=== PATIENT | female | born 1990 | race Caucasian/White ===

== ENCOUNTER → 2019-05-14 | Outpatient (CLI) | payer OTHER ==
--- NOTE | 2019-05-14 08:43 | RADIOLOGY REPORT (SQ) ---
EXAM DESCRIPTION: DUPLEX ART/LUIS FLOW COMPLETE COMPLETED DATE/TIME: 05/14/2019 8:16 am REASON FOR STUDY: HTN (I10) COMPARISON: None. TECHNIQUE: Realtime and static grayscale images acquired. Selected color Doppler, velocities and spe ctral images recorded. LIMITATIONS: None. FINDINGS: RIGHT KIDNEY: RENAL ARTERY VELOCITIES: 163 cm/sec. Segmental artery velocity 63 cm/sec. RENAL VEIN: Color doppler flow present, patent. VELOCITY RATIO: 0.8. Normal waveforms. KIDNEY: Normal size. No significant pathology. LEFT KIDNEY: RENAL ARTERY VELOCITIES: 131 cm/sec. Segmental artery velocity 77 cm/sec. RENAL VEIN: Color doppler flow present, patent. VELOCITY RATIO: 0.7. Normal waveforms. KIDNEY: Normal size. No significant pathology. BLADDER: Normal. OTHER: There is a 3.1 x 3.8 cm echogenic lesion in the left lobe of the liver. IMPRESSION: 1. NO DOPPLER EVIDENCE OF HEMODYNAMICALLY SIGNIFICANT RENAL ARTERY STENOSIS. 2. INCIDENTALLY SEEN IS A 3.1 X 3.8 CM ECHOGENIC LESION IN THE LEFT LOBE OF THE LIVER. THE LIVER IS NOT COMPLETELY EVALUATED ON THE STUDY. 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 RECOMMEND CORRELATI ON WITH ANY PRIOR IMAGING STUDIES. IF THERE HAS BEEN NO PREVIOUS EVALUATION, THEN WOULD CONSIDER MRI OF THE LIVER FOR MORE COMPLETE EVALUATION. COMMENT: NORMAL RENAL ARTERY/AORTA VELOCITY RATIO IS LESS THAN OR EQUAL TO 3.5. TECHNICAL DOCUMENTATION: JOB ID: [id number] [employer]- All Rights Reserved Reading location - IP/workstation name: [email or web address]
== END ==
LOC: RAD 07:13
PROVIDERS: ATTEND Student in an Organized Health Care Education/Training Program
DX: R03.0 Elevated blood-pressure reading, without diagnosis of hypertension (principal)
CPT/HCPCS: 93975